=== PATIENT | female | born 1995 | race American Indian/Alaskan Native ===

== ENCOUNTER 2016-06-20 12:13 | Emergency (ER) | payer OTHER ==
[2016-06-20 12:14] VITALS: BMI 29.6
[2016-06-20 12:43] VITALS: BP 142/81; PULSE 90; RESP 16; TEMP 98.4; O2SAT 99
--- NOTE | 2016-06-20 13:53 | ED PDOC ---
HPI: Skin/Bite Injury Time Seen by Provider: 06/20/16 13:30 Chief Complaint (Nursing): Abnormal Skin Integrity History Per: Patient History/Exam Limitations: no limitations Additional Complaint(s): 21-year-old female, presents to the emergency department with complaints of itching diffusely to extremities and body for the past few months. Patient notes that her sister moved in with her recently, and she has developed itching as well. No rashes or bug bites. She notes that itching is worse at night. Patient denies nausea/vomiting, fevers, chills, chest pain, shortness of breath or any other associated symptoms. No other complaints at this time. Past Medical History Reviewed: Historical Data, Nursing Documentation, Vital Signs Vital Signs: Last Vital Signs Temp 98.4 F 06/20/16 12:41 Pulse 90 06/20/16 12:41 Resp 16 06/20/16 12:41 BP 142/81 06/20/16 12:41 Pulse Ox 99 06/20/16 12:41 - Family History Family History: States: Unknown Family Hx - Immunization History Hx Tetanus Toxoid Vaccination: No Hx Influenza Vaccination: No Hx Pneumococcal Vaccination: No - Home Medications Home Medications: Ambulatory Orders Medication Instructions Recorded Docusate [Colace] 100 mg PO DAILY PRN #30 cap 03/30/16 Ferrous Sulfate [Feosol] 325 mg PO TID #90 tab 03/30/16 Ferrous Sulfate [Feosol] 325 mg PO BID #30 tab 04/13/16 Ibuprofen [Motrin Tab] 800 mg PO Q6 PRN #40 tab 04/13/16 Pnv No.122/Iron/Folic Acid 1 each PO DAILY #30 tablet 04/13/16 [ Multi Tablet] oxyCODONE/Acetaminophen [Percocet 1 tab PO Q4H PRN #40 tab 04/13/16 5/325 mg Tab] Permethrin 1% Kit [Nix Complete 59 ml TP DAILY #2 bottle 06/20/16 Lice Elimination Kit 1%] - Allergies Allergies/Adverse Reactions: Allergies Allergy/AdvReac Type Severity Reaction Status Date / Time No Known Allergies Allergy Verified 12/28/15 16:06 Review of Systems ROS Statement: Except As Marked, All Systems Reviewed And Found Negative Constitutional: Negative for: Fever, Chills Cardiovascular: Negative for: Chest Pain, Palpitations Respiratory: Negative for: Cough, Shortness of Breath Physical Exam - Reviewed Nursing Documentation Reviewed: Yes Vital Signs Reviewed: Yes - Physical Exam Appears: Positive for: Non-toxic, No Acute Distress Head Exam: Positive for: ATRAUMATIC, NORMOCEPHALIC Skin: Positive for: Warm, Dry. Negative for: Rash (No signs or symptoms of infection. No skin changes. No insect bites. No lesions or rashes noted.) Eye Exam: Positive for: Normal appearance, EOMI, PERRL Neck: Positive for: Painless ROM, Supple Respiratory: Negative for: Accessory Muscle Use, Respiratory Distress Extremity: Positive for: Normal ROM Neurologic/Psych: Positive for: Alert, Oriented - ECG O2 Sat by Pulse Oximetry: 99 Medical Decision Making Medical Decision Making: Plan: Patient will be discharged w/ Rx for Permetherin cream to treat scabies. Patient asked to follow-up with PMD in 1-2 days. All questions answered. Patient is agreeable with plan. Scribe Attestation: Documented by Prabha Hernandez, acting as a scribe for STEFFI Mancilla. Provider Attestation: All medical record entries made by the Scribe were at my direction and personally dictated by me. I have reviewed the chart and agree that the record accurately reflects my personal performance of the history, physical exam, medical decision making, and the department course for this patient. I have also personally directed, reviewed, and agree with the discharge instructions and disposition. Disposition - Clinical Impression Clinical Impression: Itching - Disposition Referrals: FAMILY PROVIDER,NO [Primary Care Provider] - Condition: STABLE Prescriptions: Permethrin 1% Kit [Nix Complete Lice Elimination Kit 1%] 59 ml TP DAILY #2 bottle Instructions: Scabies (ED)
== END 2016-06-20 13:50 | disposition home or self-care (01) ==
LOC: H.ER 12:13
DX: L29.9 Pruritus, unspecified (principal)

== ENCOUNTER 2016-07-23 09:35 | Emergency (ER) | payer OTHER ==
[2016-07-23 09:41] VITALS: BP 131/76; TEMP 97; O2SAT 99; BMI 25.0
--- NOTE | 2016-07-23 09:58 | ED PDOC ---
HPI: General Adult Time Seen by Provider: 07/23/16 09:50 Chief Complaint (Nursing): Abnormal Skin Integrity Chief Complaint (Provider): Itching History Per: Patient History/Exam Limitations: no limitations Onset/Duration Of Symptoms: Days (1 week) Have you had recent travel within the past 21 days to any of the following countries: [place], [place], [place] or [place]?: No Current Symptoms Are (Timing): Still Present Additional Complaint(s): Pt. as exposed to scabies some time back and got treated with a cream. For 1 week she has the same itchinhg all over her body. No rashes. Feels bumps at different parts of her body. States same family member possibly gave it to her again. Denies any pain, dyspnea, vomit, dyspnea, swelling. No new food, drugs , lotion, meds, or anything different. Pt. eating with no issues. Past Medical History Reviewed: Nursing Documentation, Vital Signs Vital Signs: Last Vital Signs Temp 97 F L 07/23/16 09:40 Pulse 92 H 07/23/16 09:40 Resp BP 131/76 07/23/16 09:40 Pulse Ox 99 07/23/16 09:40 - Medical History PMH: No Chronic Diseases - Surgical History Surgical History: No Surg Hx - Family History Family History: States: Unknown Family Hx - Living Arrangements Living Arrangements: With Family - Social History Current smoker - smoking cessation education provided: No Alcohol: None Drugs: Denies - Immunization History Hx Tetanus Toxoid Vaccination: No Hx Influenza Vaccination: No Hx Pneumococcal Vaccination: No - Home Medications Home Medications: Ambulatory Orders Medication Instructions Recorded Permethrin 1% Kit [Nix Complete 1 unit EXT ONCE #1 bottle 07/23/16 Lice Elimination Kit 1%] - Allergies Allergies/Adverse Reactions: Allergies Allergy/AdvReac Type Severity Reaction Status Date / Time No Known Allergies Allergy Verified 07/23/16 09:50 Review of Systems Constitutional: Negative for: Fever, Weakness Cardiovascular: Negative for: Chest Pain Respiratory: Negative for: Cough, Shortness of Breath Gastrointestinal: Negative for: Nausea, Abdominal Pain Genitourinary Female: Negative for: Dysuria Musculoskeletal: Negative for: Neck Pain Skin: Negative for: Lesions, Jaundice Neurological: Negative for: Weakness Physical Exam - Reviewed Nursing Documentation Reviewed: Yes Vital Signs Reviewed: Yes - Physical Exam Appears: Positive for: Well, Non-toxic, No Acute Distress Head Exam: Positive for: ATRAUMATIC, NORMAL INSPECTION, NORMOCEPHALIC Skin: Negative for: Diaphoresis, Pallor, Rash (no erythema or bites or lesions seen on skin on body/extremities), Jaundice Eye Exam: Positive for: EOMI, Normal appearance, PERRL ENT: Positive for: Normal ENT Inspection. Negative for: Nasal Congestion, Pharyngeal Erythema Neck: Positive for: Normal, Painless ROM, Supple Cardiovascular/Chest: Positive for: Regular Rate, Rhythm Respiratory: Positive for: Normal Breath Sounds Gastrointestinal/Abdominal: Positive for: Normal Exam, Soft. Negative for: Tenderness Back: Positive for: Normal Inspection. Negative for: L CVA Tenderness, R CVA Tenderness Extremity: Positive for: Normal ROM. Negative for: Tenderness, Pedal Edema Neurologic/Psych: Positive for: Alert, Oriented - ECG O2 Sat by Pulse Oximetry: 99 - Progress ED Course And Treament: 1007: Stable. AAOx3. Fu with pcp. Will tx for scabies as pt. feels same and meds helped last time. Disposition - Clinical Impression Clinical Impression: Scabies - Patient ED Disposition Is Patient to be Admitted: No Counseled Patient/Family Regarding: Diagnosis, Need For Followup, Rx Given - Disposition Referrals: [facility], [facility] [Outside] - 07/24/16 Disposition: Routine/Home Disposition Time: 10:09 Condition: STABLE Additional Instructions: Return if not better in 3 days. Prescriptions: Permethrin 1% Kit [Nix Complete Lice Elimination Kit 1%] 1 unit EXT ONCE #1 bottle Instructions: Scabies (ED)
[2016-07-23 10:21] VITALS: PULSE 81
== END 2016-07-23 10:23 | disposition home or self-care (01) ==
LOC: H.ER 09:35
DX: B86 Scabies (principal)